=== PATIENT | female | born 1955 | race African-American/Black ===

== ENCOUNTER 2018-11-07 12:30 | Emergency (ER) | payer OTHER ==
[~2018-11-07] VITALS: Ht 162.6 cm; Wt 69.9 kg
[~2018-11-07 12:30] MED LIST: NORCO 5-325 TA1 EACH PO; ROBAXIN-750750 MG PO; [UNRECOGNIZED DRUG - OTHER]; aspirin; cetrizine; glipizide; loratadine; losartan; metformin; tramadol
[2018-11-07 12:51] VITALS: BP 129/84
--- NOTE | 2018-11-07 12:51 | NUR ---
ED Nurse Note: pt walked in due to bilateral lower extremity pain and swelling started a month ago, pt stated that she has ckd and has been taking medicine, denies sob. pt noted with edema on both legs. ermd on bedside. will continue to monitor
--- NOTE | 2018-11-07 13:03 | NUR ---
ED Nurse Note: mold technician on bedside
[2018-11-07] MEDS ORDERED: CYCLOBENZAPRINE10 MG ORAL (13:21)
[2018-11-07] MEDS ORDERED: QVAR7.3 GM INH (13:21)
[2018-11-07] MEDS ORDERED: ATORVASTATIN CA20 MG ORAL (13:21)
[2018-11-07] MEDS ORDERED: FERROUS SULFAT325 MG ORAL (13:21)
[2018-11-07] MEDS ORDERED: ZYRTEC10 MG ORAL (13:21)
[2018-11-07] MEDS ORDERED: NORVASC10 MG ORAL (13:21)
[2018-11-07] MEDS ORDERED: PROAIR HFA8.5 GM INH (13:21)
[2018-11-07] MEDS ORDERED: LISINOPRIL-HCT1 EAC2 ORAL (13:21)
[2018-11-07] MEDS ORDERED: OMEPRAZOLE20 M2 ORAL (13:21)
[2018-11-07] MEDS ORDERED: ASPIRIN81 MG ORAL (13:21)
[2018-11-07] MEDS ORDERED: GLUCOTROL10 MG ORAL (13:21)
[2018-11-07 14:00] VITALS: BP 124/62
[2018-11-07 14:01] LABS: BASOPHILS % (AUTO) 0.8 % (0.0-2.0); EOSINOPHILS % (AUTO) 8.8 % (0.0-3.0); HEMATOCRIT 34.5 % (37.0-47.0); HEMOGLOBIN 11.4 G/DL (12.0-16.0); LYMPHOCYTES % (AUTO) 48.4 % (20.0-45.0); MEAN CORPUSCULAR VOLUME 86 FL (80-99); MONOCYTES % (AUTO) 5.7 % (1.0-10.0); NEUTROPHILS % (AUTO) 36.3 % (45.0-75.0); PLATELET COUNT 187 K/UL (150-450); RED BLOOD COUNT 4.02 M/UL (4.20-5.40); RED CELL DISTRIBUTION WIDTH 13.6 % (11.6-14.8); WHITE BLOOD COUNT 6.3 K/UL (4.8-10.8)
--- NOTE | 2018-11-07 14:07 | Emergency Room Report ---
History of Present Illness General Chief Complaint: Edema Source: Patient (Hernan Mullins MD) Present Illness HPI 63-year-old female presents ED for evaluation. Patient walked in complaining of leg swelling. States that legs have been increasingly swollen for the last month. Notes history of hypertension and diabetes. States that she takes a "water pill" but does not know the name of it. States that she goes to a clinic but every time she goes there the doctor is different. Denies chest pain or shortness of breath. Denies pain. No other aggravating relieving factors. Denies any other associated symptoms (Hernan Mullins MD) Allergies: Coded Allergies: No Known Allergies (Unverified , 11/28/12) Patient History Past Medical History: DM, HTN, asthma Past Surgical History: none Pertinent Family History: none Social History: Denies: smoking, alcohol use, drug use Now: No Immunizations: UTD Reviewed Nursing Documentation: PMH: Agreed; PSxH: Agreed (Hernan Mullins MD) Nursing Documentation-PMH Past Medical History: No History, Except For Hx Hypertension: Yes Hx Asthma: Yes Hx Diabetes: Yes (Hernan Mullins MD) Review of Systems All Other Systems: negative except mentioned in HPI (Hernan Mulilns MD) Physical Exam Vital Signs Date Time Temp Pulse Resp B/P (MAP) Pulse Ox O2 Delivery O2 Flow Rate FiO2 11/07/18 12:35 97.9 93 18 129/77 (94) 98 Room Air Sp02 EP Interpretation: reviewed, normal General Appearance: no apparent distress, alert, GCS 15, non-toxic Head: normocephalic, atraumatic Eyes: bilateral eye normal inspection, bilateral eye PERRL ENT: hearing grossly normal, normal pharynx, no angioedema, normal voice Neck: full range of motion, supple/symm/no masses Respiratory: chest non-tender, lungs clear, normal breath sounds, speaking full sentences Cardiovascular #1: regular rate, rhythm, no edema Cardiovascular #2: 2+ carotid (R), 2+ carotid (L), 2+ radial (R), 2+ radial (L) , 2+ dorsalis pedis (R), 2+ dorsalis pedis (L) Gastrointestinal: normal bowel sounds, non tender, soft, non-distended, no guarding, no rebound Rectal: deferred Genitourinary: normal inspection, no CVA tenderness Musculoskeletal: back normal, gait/station normal, normal range of motion, swelling - 2+ pitting edema b/l LEs Neurologic: alert, oriented x3, responsive, motor strength/tone normal, sensory intact, speech normal Psychiatric: judgement/insight normal, memory normal, mood/affect normal, no suicidal/homicidal ideation Reflexes: 3+ bicep (R), 3+ bicep (L), 3+ tricep (R), 3+ tricep (L), 3+ knee (R) , 3+ knee (L) Skin: normal color, no rash, warm/dry, well hydrated Lymphatic: no adenopathy (Hernan Mullins MD) Medical Decision Making Diagnostic Impression: Primary Impression: Edema Qualified Codes: R60.9 - Edema, unspecified Additional Impression: Renal insufficiency ER Course Please see above note. Discussed laboratory results with patient. Lasix given here. Prescription for Lasix also given. Discussed with patient the need for salt restriction and also follow-up with her own physicians. Patient given a copy of her labs. Patient stable for outpatient observation and treatment. Laboratory Tests Test 11/07/18 13:00 White Blood Count 6.3 K/UL (4.8-10.8) Red Blood Count 4.02 M/UL (4.20-5.40) L Hemoglobin 11.4 G/DL (12.0-16.0) L Hematocrit 34.5 % (37.0-47.0) L Mean Corpuscular Volume 86 FL (80-99) Mean Corpuscular Hemoglobin 28.3 PG (27.0-31.0) Mean Corpuscular Hemoglobin Concent 32.9 G/DL (32.0-36.0) Red Cell Distribution Width 13.6 % (11.6-14.8) Platelet Count 187 K/UL (150-450) Mean Platelet Volume 6.4 FL (6.5-10.1) L Neutrophils (%) (Auto) 36.3 % (45.0-75.0) L Lymphocytes (%) (Auto) 48.4 % (20.0-45.0) H Monocytes (%) (Auto) 5.7 % (1.0-10.0) Eosinophils (%) (Auto) 8.8 % (0.0-3.0) H Basophils (%) (Auto) 0.8 % (0.0-2.0) Sodium Level 140 MMOL/L (136-145) Potassium Level 4.5 MMOL/L (3.5-5.1) Chloride Level 105 MMOL/L (98-107) Carbon Dioxide Level 25 MMOL/L (21-32) Anion Gap 10 mmol/L (5-15) Blood Urea Nitrogen 18 mg/dL (7-18) Creatinine 1.6 MG/DL (0.55-1.30) H Estimate Glomerular Filtration Rate 39.5 mL/min (>60) Glucose Level 213 MG/DL (74-106) H Calcium Level 9.4 MG/DL (8.5-10.1) Total Bilirubin 0.2 MG/DL (0.2-1.0) Aspartate Amino Transferase (AST) 24 U/L (15-37) Alanine Aminotransferase (ALT) 28 U/L (12-78) Alkaline Phosphatase 114 U/L (46-116) Total Creatine Kinase 108 U/L (26-308) Creatine Kinase MB < 0.5 NG/ML (0.0-3.6) Creatine Kinase MB Relative Index 0.4 Troponin I 0.000 ng/mL (0.000-0.056) Pro-B-Type Natriuretic Peptide 180 pg/mL (0-125) H Total Protein 7.2 G/DL (6.4-8.2) Albumin 4.0 G/DL (3.4-5.0) Globulin 3.2 g/dL Albumin/Globulin Ratio 1.3 (1.0-2.7) (Sreekanth Parker MD) EKG Diagnostic Results Rate: normal Rhythm: NSR ST Segments: no acute changes ASA given to the pt in ED: No (Hernan Mullins MD) Rhythm Strip Diag. Results EP Interpretation: yes Rhythm: NSR, no PVC's, no ectopy (Hernan Mullins MD) EP Interpretation: yes Rhythm: NSR, no PVC's, no ectopy (Sreekanth Parker MD) Chest X-Ray Diagnostic Results Chest X-Ray Diagnostic Results : Chest X-Ray Ordered: Yes # of Views/Limited/Complete: 1 View Indication: Other EP Interpretation: Yes Interpretation: no consolidation, no effusion, no pneumothorax, no acute cardiopulmonary disease Impression: No acute disease Electronically Signed by: Electronically signed by Hernan Mullins MD (Hernan Mullins MD) Last Vital Signs Date Time Temp Pulse Resp B/P (MAP) Pulse Ox O2 Delivery O2 Flow Rate FiO2 11/07/18 14:00 84 18 124/62 100 Room Air 11/07/18 12:51 97.9 Status: improved (Hernan Mullins MD) Last Vital Signs Date Time Temp Pulse Resp B/P (MAP) Pulse Ox O2 Delivery O2 Flow Rate FiO2 11/07/18 15:00 97.9 84 14 119/64 100 Room Air Status: improved (Sreekanth Parker MD) Disposition: HOME, SELF-CARE Condition: Stable Scripts Acetaminophen (Tylenol) 325 Mg Tablet 650 MG ORAL Q6H PRN for Prn Pain/Headache/Temp > 101, #20 TAB 0 Refills Prov: Sreekanth Parker MD 11/07/18 Furosemide* (LASIX*) 20 Mg Tablet 20 MG ORAL DAILY, #7 TAB Prov: Sreekanth Parker MD 11/07/18 Hernan Mullins MD Nov 07, 2018 14:07 Sreekanth Parker MD Nov 07, 2018 14:28
[2018-11-07 14:11] LABS: ANION GAP 10 mmol/L (5-15); BLOOD UREA NITROGEN 18 mg/dL (7-18); CALCIUM 9.4 MG/DL (8.5-10.1); CARBON DIOXIDE 25 MMOL/L (21-32); CHLORIDE 105 MMOL/L (98-107); CREATININE 1.6 MG/DL (0.55-1.30); POTASSIUM 4.5 MMOL/L (3.5-5.1); SODIUM 140 MMOL/L (136-145)
[2018-11-07 14:24] LABS: ALANINE AMINOTRANSFERASE 28 U/L (12-78); ALBUMIN/GLOBULIN RATIO 1.3 (1.0-2.7); ALKALINE PHOSPHATASE 114 U/L (46-116); ASPARTATE AMINO TRANSFERASE 24 U/L (15-37); BILIRUBIN,TOTAL 0.2 MG/DL (0.2-1.0); CKMB < 0.5 NG/ML (0.0-3.6); CREATINE KINASE 108 U/L (26-308)
[2018-11-07] MEDS ORDERED: FUROSEMIDE20 M1 ORAL (14:41)
[2018-11-07] MEDS ORDERED: TYLENOL325 MG ORAL (14:41)
--- NOTE | 2018-11-07 14:50 | NUR ---
ED Nurse Note: pt was medicated and tolerated well.
[2018-11-07 15:00] VITALS: BP 119/64
--- NOTE | 2018-11-07 15:00 | NUR ---
ER DISCHARGE NOTE: Patient is cleared to be discharged per ERMD, pt is aox4, on room air, with stable vital signs. pt was given dc and prescription instructions, pt was able to verbalize understanding, pt id band and iv site removed without complications. pt is able to ambulate with steady gait. pt took all belongings.
--- NOTE | 2018-11-08 13:17 | Diagnostic Imaging Report ---
Indication: Shortness of breath Technique: One view of the chest Comparison: none Findings: There is atelectasis at the left lung base. Lungs and pleural spaces are otherwise clear. Normal heart size. Impression: No acute process
== END 2018-11-07 15:00 | disposition home or self-care (01) ==
LOC: EMR 14:07
DX: R60.9 Edema, unspecified (principal); N28.9 Disorder of kidney and ureter, unspecified; E11.9 Type 2 diabetes mellitus without complications; I10 Essential (primary) hypertension
CPT/HCPCS: 36415; 71045; 80053; 82550; 82553; 83880; 84484; 85025; 93005; 96374; 99284; J1940